=== PATIENT | male | born 1970 | race Caucasian/White ===

== ENCOUNTER 2024-02-13 14:44 | Emergency (ER) | payer BC ==
--- NOTE | 2024-02-13 15:50 | ED Physician Documentation ---
PD HPI UPPER EXT INJURY - Stated complaint Stated Complaint: RT SHOULDER INJ - Chief complaint Chief Complaint: Ext Problem - History obtained from History obtained from: Patient - History of Present Illness Location: Right, Shoulder Type of injury: Twist (he was walking dog and it pulled his arm abruptly as he was leaning forward a bit, with pain in right shoulder, and unable to move it from abducted position witohuout pain.) Where injury occurred: [place] - onset: Today Timing - details: Abrupt onset, Still present Worsened by: Moving, Palpating Associated symptoms: No: Weakness, Numbness Similar symptoms before: Diagnosis (had shoulder dislocation when younger and also had ribs/rotator cuff injury/shoulder girdle injury several years ago. Has limited strength for some rotator cuff movements chronically.) PD PAST MEDICAL HISTORY - Past Medical History Past Medical History: Yes Cardiovascular: Hypertension Other Past Medical History: CLL - Past Surgical History Past Surgical History: No - Allergies Allergies/Adverse Reactions: Allergies Allergy/AdvReac Type Severity Reaction Status Date / Time No Known Drug Allergies Allergy Verified 02/13/24 15:03 - Social History Does the pt smoke?: No Smoking Status: Never smoker PD ED PE NORMAL - Vitals Vital signs reviewed: Yes - General General: Alert and oriented X 3, Well developed/nourished, Other (in pain if moves right shoulder. Holding it at abduction 90 degrees with elbow flexed and hand rested on his forehead. c/w inferior dislocation. ) - HEENT HEENT: Pharynx benign (wide open mouth when asked. ) - Cardiac Cardiac: RRR, No murmur - Respiratory Respiratory: Clear bilaterally Results - Vitals Vitals: Vital Signs - 24 hr 02/13/24 02/13/24 02/13/24 14:58 17:04 17:20 Temperature 36.4 C L Heart Rate 90 93 82 Respiratory 20 21 20 Rate Blood Pressure 173/83 H 160/87 H 145/90 H O2 Saturation 94 97 95 If not protocol 4 : Oxygen Flow, liters/minute 02/13/24 02/13/24 02/13/24 17:25 17:40 18:15 Temperature Heart Rate 81 80 90 Respiratory 20 18 18 Rate Blood Pressure 141/81 H 139/76 H O2 Saturation 95 94 If not protocol : Oxygen Flow, liters/minute Oxygen O2 Source Room air - Rads (name of study) right shooulder xray Relevant Findings:: Prelim report reviewed, EMP independent interpretation of test (inferior dislocation) post reduction Relevant Findings:: Prelim report reviewed, EMP independent interpretation of test (reduced) Procedures - Reduction Body part reduced: Right, Shoulder Fracture or dislocation: Dislocation Anesthesia: Dilaudid Shoulder reduction technique: Traction - counter tract (for inferior dislocation) Reduction aftercare: NV intact, Xray confirms reduction, Alignment improved, Sling - Procedural sedation Sedation prep: Informed consent, Time out completed, Last meal (lunch time small sandwich (4 hrs prior)), PE performed, ASA 1 - healthy Sedation Medications: propofol (140 mg total) Mallampati classification: I Patient status during sedation: Responds to tactile, Vitals remained stable, Maintained airway, Recovered uneventfully Sedation recovery: Recovered uneventfully, Back to baseline Time in sedation (Minutes): 8 PD Medical Decision Making - ED course Complexity details: reviewed results, considered differential (mechanism and exam c/w inferior dislocation of shoulder. No fracture on xray. Reduced under sedation after getting IV dilaudid while getting xrays and prepping for porocedure. ), d/w patient, d/w family (spouse) Departure - Departure Disposition: 01 Home, Self Care Clinical Impression: Inferior dislocation of humerus, closed Qualifiers: Encounter type: initial encounter Laterality: right Qualified Code(s): S43.034A - Inferior dislocation of right humerus, initial encounter Condition: Stable Record reviewed to determine appropriate education?: Yes Instructions: ED Dislocation Shoulder Redu Follow-Up: Carlos Scott DO [Primary Care Provider] - Comments: Your shoulder is back in location at this time. The ligaments and muscles will have gotten stretched out and sore of course having been dislocated for the period of time. Gentle use of the shoulder over the next few days and progressively back more to baseline. Use a sling initially for the next several days or even up to a week or so as needed for comfort. Gentle range of motion of the shoulder periodically several times a day though so it does not get stiff. Ice or cool towels periodically for swelling. Tylenol and/or ibuprofen if needed for pains. Follow-up with your primary or Ortho if not back to baseline in the next week or so. Given the prior injuries to the shoulder and some rotator cuff injuries, you can dislocate without necessarily having to read tear ligaments or tendons. As such that tends to heal faster once it is reduced. If you are still having significant pain on motion over the week or so, then it may be you did have some newly torn tendons etc. This may be a bit longer and healing, even up to 3 to 4 weeks. Forms: PCP List Discharge Date/Time: 02/13/24 18:16
[2024-02-13] MEDS: SODIUM CHLORIDE 0.9% 1,000 ML IV STA (16:20)
[2024-02-13] MEDS: HYDROmorphone 1 MG/ML CARPUJECT IVP STA ×2 (16:22→16:51)
[2024-02-13] MEDS: KETOROLAC 15 MG/ML VIAL IVP STA (16:23)
--- NOTE | 2024-02-13 17:00 | XRAY Report ---
PROCEDURE: Shoulder 2+V RT INDICATIONS: right shoulder pain TECHNIQUE: 3 views of the shoulder were acquired. COMPARISON: None. FINDINGS: Bones: Exam is limited secondary to positioning. No fractures or dislocations. No suspicious bony le sions. Visualized ribs appear intact. Soft tissues: No suspicious soft tissue calcifications. The visualized lungs are within normal limi ts. IMPRESSION: Exam is limited secondary to positioning. No acute bony abnormalities are identified. Reviewed by: Rhys Santiago MD on 02/13/2024 4:58 PM PDT Approved by: Rhys Santiago MD on 02/13/2024 4:58 PM PDT Station ID: [id number]
[2024-02-13] MEDS: PROPOFOL 200 MG/20 ML VIAL IVP STA (17:15)
--- NOTE | 2024-02-13 18:15 | XRAY Report ---
PROCEDURE: Shoulder 2+V RT INDICATIONS: post reduction TECHNIQUE: 3 views of the shoulder were acquired. COMPARISON: Same-day shoulder radiograph. FINDINGS: Bones: Suspected interval reduction of the right glenohumeral joint, which appears normally aligned. No displaced fracture. Soft tissues: No suspicious soft tissue calcifications. The visualized lungs are within normal limi ts. IMPRESSION: Interval reduction, with normal alignment. Reviewed by: Davon Shaw MD on 02/13/2024 6:13 PM PDT Approved by: Davon Shaw MD on 02/13/2024 6:13 PM PDT Station ID: [id number]
[2024-02-13 18:21] VITALS: BP 139/76; O2SAT 94
== END 2024-02-13 18:16 | disposition home or self-care (01) ==
LOC: ED 14:44
DX: S43.034A Inferior dislocation of right humerus, initial encounter (principal); X50.1XXA Overexertion from prolonged static or awkward postures, initial encounter; Y93.K1 Activity, walking an animal; I10 Essential (primary) hypertension
CPT/HCPCS: 23655; 73030; 96374; 99284; 99285; J1170